=== PATIENT | male | born 1985 | race Caucasian/White ===

== ENCOUNTER 2017-04-08 11:50 | Emergency (ER) | payer SELFPAY ==
--- NOTE | 2017-04-08 12:48 | UC ---
FLU HPI - HPI Summary HPI Summary: 32 year old male with viral like illness. Elevated temperature (tmax 101), nasal congestion, "green" productive cough, decreased appetite, nausea with seven to eight episodes of vomiting (last at 0630 today), and four episodes of diarrhea (last at 2100 yesterday), myalgias, chills, sweats, and fatigue for two days. Called in to work today. Patient works at a factory. PCP Jhon Lawler. [ End ] - History of Current Complaint Chief Complaint: UCGeneralIllness Stated Complaint: FLU LIKE SYMPTOMS Time Seen by Provider: 04/08/17 12:29 Hx Obtained From: Patient Onset/Duration: Sudden Onset Severity Currently: Moderate Severity Initially: Moderate Associated Signs & Symptoms: Positive: Fever, Myalgia, Nasal Congestion, Headache, Vomiting, Diarrhea - Allergy/Home Medications Allergies/Adverse Reactions: Allergies Allergy/AdvReac Type Severity Reaction Status Date / Time No Known Allergies Allergy Verified 04/08/17 12:23 Home Medications: Home Medications Acetaminophen [Acetaminophen Extra Stren] 1,000 mg PO Q6H PRN 04/08/17 [History Confirmed 04/08/17] Ibuprofen TAB* [Advil TAB*] 600 mg PO Q6H PRN 04/08/17 [History Confirmed ] PMH/Surg Hx/FS Hx/Imm Hx Previously Healthy: Yes - Surgical History Surgical History: None - Family History Known Family History: Positive: Unknown - Social History Occupation: Employed Full-time Lives: With Family Alcohol Use: Rare Substance Use Type: None Substance Use Comment - Amount & Last Used: hx of opiod abuse Smoking Status (MU): Heavy Every Day Tobacco Smoker Type: Cigarettes Amount Used/How Often: 1/2 PPD Length of Time of Smoking/Using Tobacco: Since Age 25 - Immunization History Most Recent Influenza Vaccination: Not the 2016/2017 Season Review of Systems Constitutional: Chills, Fatigue Skin: Rash ENT: Nasal Discharge Respiratory: Cough Gastrointestinal: Vomiting, Diarrhea, Nausea Musculoskeletal: Myalgia Neurological: Headache All Other Systems Reviewed And Are Negative: Yes Physical Exam Triage Information Reviewed: Yes Appearance: Well-Appearing, No Pain Distress, Well-Nourished Vital Signs: Initial Vital Signs Temp 99.7 F 04/08/17 12:20 Pulse 108 04/08/17 12:20 Resp 20 04/08/17 12:20 BP 128/74 12/21/17 12:20 Pulse Ox 98 04/08/17 12:20 Vital Signs Reviewed: Yes Eye Exam: Normal ENT Exam: Normal ENT: Positive: Nasal drainage Dental Exam: Normal Neck exam: Normal Neck: Positive: 1 Respiratory Exam: Normal Cardiovascular Exam: Normal Musculoskeletal Exam: Normal Neurological Exam: Normal Psychological Exam: Normal Skin Exam: Normal Flu Course/Dx - Course Course Of Treatment: possible to be flu patient declined testing. will offer tamiflu as he is in the window for meds. no worl. rest up. if sx persist then go to ED - Differential Dx/Diagnosis Differential Diagnosis/HQI/PQRI: Influenza, Upper Respiratory Infection Provider Diagnoses: flu like ilness Discharge - Discharge Plan Condition: Good Disposition: HOME Prescriptions: Oseltamivir Phosphate [Tamiflu] 75 mg PO BID #10 cap Patient Education Materials: Viral Syndrome (ED) Forms: *Work Release Referrals: No Primary Care Phys,NOPCP [Primary Care Provider] - If Needed
== END 2017-04-08 13:04 | disposition home or self-care (01) ==
LOC: UCCORT 11:50
DX: R50.9 Fever, unspecified (principal); R09.81 Nasal congestion; R05 Cough; R11.2 Nausea with vomiting, unspecified; M79.1 Myalgia; R53.83 Other fatigue; Z72.0 Tobacco use; F11.11 Opioid abuse, in remission
CPT/HCPCS: 99212; G0463